=== PATIENT | female | born 1975 | race Caucasian/White ===

== ENCOUNTER 2019-10-20 13:20 | Emergency (ER) | payer OTHER ==
[~2019-10-20 13:20] MED LIST: GLIPIZIDE10 M2 PO; GLYBURIDE2.5 M1 PO; LEVOTHYROXIN25 MC1 PO; LEVOTHYROXIN25 MCG PO; LISINOPRIL2.5 MG PO; METFORMIN1000 MG PO; METFORMIN500 MG PO
[2019-10-20] MEDS ORDERED: METFORMIN500 M2 PO (13:27)
[2019-10-20] MEDS ORDERED: FIASP100 UNIT/M SC (13:27)
[2019-10-20] MEDS ORDERED: TOUJEO SOL300 UNIT/M SC (13:28)
[2019-10-20] MEDS ORDERED: LEVOTHYROXIN75 MCG PO (13:28)
[2019-10-20] MEDS ORDERED: ATORVASTATIN CA40 MG PO (13:31)
[2019-10-20] MEDS ORDERED: ESTRACE2 M1 PO (13:33)
[2019-10-20] MEDS ORDERED: SPIRONOLACTONE25 MG PO (13:33)
[2019-10-20] MEDS ORDERED: FLEXERIL PO (14:20)
[2019-10-20] MEDS ORDERED: NAPROXEN500 MG PO (14:20)
[2019-10-20 14:35] VITALS: BP 140/68
== END 2019-10-20 14:35 | disposition home or self-care (01) | DRG 552 ==
LOC: ED 13:20
DX: S13.9XXA Sprain of joints and ligaments of unspecified parts of neck, initial encounter (principal); E11.9 Type 2 diabetes mellitus without complications; V53.6XXA Passenger in pick-up truck or van injured in collision with car, pick-up truck or van in traffic accident, initial encounter; Z79.4 Long term (current) use of insulin

== ENCOUNTER 2024-03-25 13:52 | Inpatient (IN) | payer MEDICARE, BC ==
[~2024-03-25] VITALS: Ht 167.6 cm; Wt 121.2 kg
[~2024-03-25 13:52] MED LIST changes: +ATORVASTATIN CA40 MG PO; +ESTRACE2 M1 PO; +FIASP100 UNIT/M SC; +FLEXERIL PO; +LEVOTHYROXIN75 MCG PO; +METFORMIN500 M2 PO; +NAPROXEN500 MG PO; +PERCOCET 5/325M1 TAB PO; +SERTRALINE; +SPIRONOLACTONE25 MG PO; +TOUJEO SOL300 UNIT/M SC; +TRESIBA100 UNIT/M
[2024-03-25 17:13] LABS: BASO% 0.3 % (0-3); HEMATOCRIT 45.3 % (37.0-47.0); IMMATURE GRANULOCYTES 0.4 % (0.0-5.0); LYMPH% 10.9 % (15-41); MEAN CORPUSCULAR HGB 28.5 pG CALC (26.0-32.0); MEAN CORPUSCULAR HGB CONC 33.1 g/dL CAL (32.0-36.0); MONO% 4.9 % (2-13); NEUT# 8.97 thou/uL (2.00-7.15); NEUT% 79.5 % (42-76); RED BLOOD COUNT 5.27 mill/uL (4.20-5.60); RED CELL DISTRI WIDTH 13.2 % (11.5-15.5)
[2024-03-25 17:37] LABS: ALBUMIN 4.4 g/dL (3.2-5.0); BILIRUBIN, TOTAL 0.5 mg/dL (0.02-1.3); CREATININE 0.7 mg/dL (0.5-1.0); POTASSIUM 4.8 mmol/l (3.5-5.1); TOTAL PROTEIN 7.4 g/dL (6.3-8.2)
[2024-03-25] MEDS ORDERED: SODIUM CHLORIDE 0.9% 1,000 ML IV ONE (17:55)
[2024-03-25] MEDS ORDERED: PIPERACILLIN Sodium-Tazobactam 3.375 GM in SODIUM CHLORIDE 0.9% 100 ML IV ONE (18:00)
[2024-03-25] MEDS ORDERED: ONDANSETRON HCl 4 MG/2 ML SDV IV ONE (18:00)
[2024-03-25] MEDS ORDERED: MORPHINE SULFATE 4 MG/ML VIAL IV ONE (18:00)
[2024-03-25 19:02] VITALS: BP 147/86
[2024-03-25 20:00] VITALS: BP 145/78
[2024-03-25] MEDS ORDERED: MAGNESIUM HYDROXIDE 30 ML UDC PO PRN (20:05)
[2024-03-25] MEDS ORDERED: Zaleplon 5 MG/CAP PO PRN (20:05)
[2024-03-25] MEDS ORDERED: ACETAMINOPHEN 325 MG/TAB PO PRN (20:05)
[2024-03-25] MEDS ORDERED: oxyCODONE 10MG/APAP 325 MG 1 COMBO TAB PO PRN (20:25)
[2024-03-25] MEDS ORDERED: JARDIANCE25 MG (20:30)
[2024-03-25] MEDS ORDERED: SERTRALINE HYD100 MG (20:30)
[2024-03-25] MEDS ORDERED: INSULIN LISPRO 100 UNITS/ML ML SC SCH (21:00)
[2024-03-25 22:01] VITALS: BP 143/71
[2024-03-26 04:02] VITALS: BP 115/51
[2024-03-26 05:08] LABS: BASO% 0.2 % (0-3); EOS% 6.7 % (0-8); HEMATOCRIT 42.5 % (37.0-47.0); HEMOGLOBIN 13.5 g/dl (12.0-16.0); IMMATURE GRANULOCYTES 0.2 % (0.0-5.0); LYMPH% 19.1 % (15-41); MEAN CELL VOLUME 90.8 fL CALC (80.0-100.0); MEAN CORPUSCULAR HGB 28.8 pG CALC (26.0-32.0); MEAN CORPUSCULAR HGB CONC 31.8 g/dL CAL (32.0-36.0); NEUT# 6.11 thou/uL (2.00-7.15); NEUT% 67.8 % (42-76); RED BLOOD COUNT 4.68 mill/uL (4.20-5.60); RED CELL DISTRI WIDTH 13.3 % (11.5-15.5)
[2024-03-26 05:24] LABS: ALBUMIN 3.8 g/dL (3.2-5.0); CREATININE 0.7 mg/dL (0.5-1.0); POTASSIUM 4.2 mmol/l (3.5-5.1); TOTAL PROTEIN 6.7 g/dL (6.3-8.2)
[2024-03-26 05:27] LABS: BILIRUBIN, TOTAL 0.8 mg/dL (0.02-1.3)
[2024-03-26] MEDS ORDERED: SENNOSIDES-Docusate Sodium 1 COMBO TAB PO SCH (09:00)
[2024-03-26] MEDS ORDERED: SERTRALINE HCL 50 MG/TAB PO SCH (12:00)
[2024-03-26] MEDS ORDERED: VANCOMYCIN HCL 1,500 MG in SODIUM CHLORIDE 0.9% 470 ML IV SCH ×2 (12:00→15:30)
[2024-03-26] MEDS ORDERED: PIPERACILLIN Sodium-Tazobactam 3.375 GM in SODIUM CHLORIDE 0.9% 100 ML IV SCH ×2 (12:00)
[2024-03-26 14:45] VITALS: BP 127/59
[2024-03-26 18:20] VITALS: BP 142/70
[2024-03-26] MEDS ORDERED: DiphenhydrAMINE HCL 25 MG CPLT PO PRN (18:20)
[2024-03-26 18:30] VITALS: BP 142/70
[2024-03-27] VITALS (10 sets, daily range): BP systolic 100–135; BP diastolic 53–78
[2024-03-27 05:54] LABS: BASO% 0.6 % (0-3); EOS% 7.1 % (0-8); HEMATOCRIT 43.1 % (37.0-47.0); HEMOGLOBIN 13.9 g/dl (12.0-16.0); IMMATURE GRANULOCYTES 0.5 % (0.0-5.0); LYMPH% 24.1 % (15-41); MEAN CELL VOLUME 90.5 fL CALC (80.0-100.0); MEAN CORPUSCULAR HGB 29.2 pG CALC (26.0-32.0); MEAN CORPUSCULAR HGB CONC 32.3 g/dL CAL (32.0-36.0); MONO% 6.8 % (2-13); NEUT# 4.02 thou/uL (2.00-7.15); NEUT% 60.9 % (42-76); RED BLOOD COUNT 4.76 mill/uL (4.20-5.60); RED CELL DISTRI WIDTH 13.2 % (11.5-15.5)
[2024-03-27] MEDS ORDERED: LEVOTHYROXINE SODIUM 75 MCG/TAB PO SCH (06:00)
[2024-03-27 06:02] LABS: ALBUMIN 3.9 g/dL (3.2-5.0); BILIRUBIN, TOTAL 0.6 mg/dL (0.02-1.3); CREATININE 0.8 mg/dL (0.5-1.0); MAGNESIUM 2.3 mg/dL (1.6-2.3); POTASSIUM 4.6 mmol/l (3.5-5.1); TOTAL PROTEIN 6.5 g/dL (6.3-8.2)
[2024-03-27] MEDS ORDERED: LIDOCAINE HCL 1% (10MG/ML) 100 MG/10 ML MDV ONE (06:51)
[2024-03-27] MEDS ORDERED: SODIUM CHLORIDE 0.9% 10 ML SYR ONE (06:56)
[2024-03-27] MEDS ORDERED: SODIUM CHLORIDE 0.9% 1,000 ML IV ONE (06:56)
[2024-03-27] MEDS ORDERED: FAMOTIDINE 10MG/ML 2ML SDV IV ONE (07:04)
[2024-03-27] MEDS ORDERED: ACETAMINOPHEN 100 ML IV ONE (09:30)
[2024-03-27] MEDS ORDERED: SODIUM CHLORIDE 1,000 ML BTL IR ONE (09:44)
[2024-03-27] MEDS ORDERED: ONDANSETRON HCl 4 MG/2 ML SDV IV ONE (10:18)
[2024-03-27] MEDS ORDERED: SUCCINYLCHOLINE CHLORIDE 20 MG/ML 10ML VIAL IV ONE (10:18)
[2024-03-27] MEDS ORDERED: KETOROLAC TROMETHAMINE 30 MG/ML SDV IV ONE (10:18)
[2024-03-27] MEDS ORDERED: MIDAZOLAM HCL 2 MG/2 ML VIAL IV ONE (10:18)
[2024-03-27] MEDS ORDERED: PROPOFOL 200 MG/20 ML VIAL IV ONE (10:18)
[2024-03-27] MEDS ORDERED: SUGAMMADEX SODIUM 200 MG/2 ML SDV IV ONE (10:18)
[2024-03-27] MEDS ORDERED: LIDOCAINE HCL 2% 2ML SDV IV ONE (10:18)
[2024-03-27] MEDS ORDERED: ROCURONIUM BROMIDE 10 MG/ML 5ML VIAL IV ONE (10:18)
[2024-03-27] MEDS ORDERED: SODIUM CHLORIDE 0.9% 1,000 ML BAG IV ONE (10:18)
[2024-03-27] MEDS ORDERED: METOPROLOL TARTRATE 5 MG/5 ML VIAL IV ONE (10:18)
[2024-03-27] MEDS ORDERED: HYDROmorphone HCL 2 MG/AMP IV PRN (10:30)
[2024-03-27] MEDS ORDERED: DOXYCYCLINE HYCLATE 100 MG in SODIUM CHLORIDE 0.9% 100 ML IV SCH (11:00)
[2024-03-28 03:40] VITALS: BP 143/78
[2024-03-28 03:48] VITALS: BP 143/78
[2024-03-28 05:41] LABS: BASO% 0.4 % (0-3); EOS% 6.5 % (0-8); HEMATOCRIT 41.3 % (37.0-47.0); IMMATURE GRANULOCYTES 1.5 % (0.0-5.0); LYMPH% 15.7 % (15-41); MEAN CORPUSCULAR HGB 28.3 pG CALC (26.0-32.0); MEAN CORPUSCULAR HGB CONC 31.5 g/dL CAL (32.0-36.0); MONO% 5.6 % (2-13); NEUT# 5.65 thou/uL (2.00-7.15); NEUT% 70.3 % (42-76); RED BLOOD COUNT 4.59 mill/uL (4.20-5.60); RED CELL DISTRI WIDTH 13.2 % (11.5-15.5)
[2024-03-28 06:05] LABS: ALBUMIN 3.7 g/dL (3.2-5.0); BILIRUBIN, TOTAL 0.5 mg/dL (0.02-1.3); CREATININE 0.8 mg/dL (0.5-1.0); MAGNESIUM 2.2 mg/dL (1.6-2.3); POTASSIUM 4.2 mmol/l (3.5-5.1); TOTAL PROTEIN 6.3 g/dL (6.3-8.2)
[2024-03-28] MEDS ORDERED: metFORMIN HYDROCHLORIDE 500 MG/TAB PO SCH (07:00)
[2024-03-28 07:15] VITALS: BP 119/68
[2024-03-28 10:52] VITALS: BP 142/58
[2024-03-28 15:28] VITALS: BP 154/77
[2024-03-28 20:00] VITALS: BP 120/43
[2024-03-28] MEDS ORDERED: SODIUM CHLORIDE 0.9% 1,000 ML IV ONE (22:20)
[2024-03-29] VITALS (11 sets, daily range): BP systolic 115–146; BP diastolic 41–65
[2024-03-29 06:03] LABS: BASO% 0.3 % (0-3); EOS% 9.2 % (0-8); HEMATOCRIT 38.2 % (37.0-47.0); HEMOGLOBIN 12.4 g/dl (12.0-16.0); IMMATURE GRANULOCYTES 0.5 % (0.0-5.0); LYMPH% 18.7 % (15-41); MEAN CELL VOLUME 90.1 fL CALC (80.0-100.0); MEAN CORPUSCULAR HGB 29.2 pG CALC (26.0-32.0); MEAN CORPUSCULAR HGB CONC 32.5 g/dL CAL (32.0-36.0); MONO% 6.2 % (2-13); NEUT# 4.79 thou/uL (2.00-7.15); NEUT% 65.1 % (42-76); RED BLOOD COUNT 4.24 mill/uL (4.20-5.60); RED CELL DISTRI WIDTH 13.1 % (11.5-15.5)
[2024-03-29 06:15] LABS: ALBUMIN 3.3 g/dL (3.2-5.0); BILIRUBIN, TOTAL 0.4 mg/dL (0.02-1.3); CREATININE 0.7 mg/dL (0.5-1.0); POTASSIUM 4.1 mmol/l (3.5-5.1); TOTAL PROTEIN 5.8 g/dL (6.3-8.2)
[2024-03-29] MEDS ORDERED: MIDAZOLAM HCL 2 MG/2 ML VIAL IV ONE (10:18)
[2024-03-29] MEDS ORDERED: PROPOFOL 200 MG/20 ML VIAL IV ONE (10:18)
[2024-03-29] MEDS ORDERED: LIDOCAINE HCL 2% 2ML SDV IV ONE (10:18)
[2024-03-29] MEDS ORDERED: FAMOTIDINE 10MG/ML 2ML SDV IV ONE (10:44)
[2024-03-29] MEDS ORDERED: SODIUM CHLORIDE 0.9% 1,000 ML IV ONE (10:44)
[2024-03-29] MEDS ORDERED: ONDANSETRON HCl 4 MG/2 ML SDV ONE (11:14)
[2024-03-30 04:08] VITALS: BP 124/44
[2024-03-30 05:59] LABS: ALBUMIN 3.4 g/dL (3.2-5.0); BILIRUBIN, TOTAL 0.3 mg/dL (0.02-1.3); CREATININE 0.6 mg/dL (0.5-1.0); MAGNESIUM 1.9 mg/dL (1.6-2.3); POTASSIUM 4.4 mmol/l (3.5-5.1)
[2024-03-30 06:00] LABS: BASO% 0.2 % (0-3); HEMATOCRIT 41.5 % (37.0-47.0); HEMOGLOBIN 12.7 g/dl (12.0-16.0); IMMATURE GRANULOCYTES 0.5 % (0.0-5.0); MEAN CELL VOLUME 94.3 fL CALC (80.0-100.0); MEAN CORPUSCULAR HGB 28.9 pG CALC (26.0-32.0); MEAN CORPUSCULAR HGB CONC 30.6 g/dL CAL (32.0-36.0); MONO% 6.2 % (2-13); NEUT# 5.37 thou/uL (2.00-7.15); NEUT% 67.1 % (42-76); RED BLOOD COUNT 4.4 mill/uL (4.20-5.60); RED CELL DISTRI WIDTH 13.3 % (11.5-15.5)
[2024-03-30 06:29] VITALS: BP 108/33
[2024-03-30 12:00] VITALS: BP 108/33
[2024-03-30 13:48] VITALS: BP 108/33
[2024-03-30 15:59] VITALS: BP 127/56
[2024-03-30 19:26] VITALS: BP 169/66
[2024-03-31 04:52] VITALS: BP 118/51
[2024-03-31 05:30] LABS: HEMATOCRIT 40.7 % (37.0-47.0); HEMOGLOBIN 13.1 g/dl (12.0-16.0); MEAN CELL VOLUME 88.7 fL CALC (80.0-100.0); MEAN CORPUSCULAR HGB 28.5 pG CALC (26.0-32.0); MEAN CORPUSCULAR HGB CONC 32.2 g/dL CAL (32.0-36.0); RED BLOOD COUNT 4.59 mill/uL (4.20-5.60); RED CELL DISTRI WIDTH 13.2 % (11.5-15.5)
[2024-03-31 05:51] LABS: ALBUMIN 3.8 g/dL (3.2-5.0); BILIRUBIN, TOTAL 0.4 mg/dL (0.02-1.3); CREATININE 0.6 mg/dL (0.5-1.0); POTASSIUM 4.1 mmol/l (3.5-5.1); TOTAL PROTEIN 6.4 g/dL (6.3-8.2)
[2024-03-31 07:01] VITALS: BP 125/61
[2024-03-31 15:50] VITALS: BP 126/54
[2024-03-31 16:39] VITALS: BP 126/54
[2024-03-31 19:01] VITALS: BP 148/78
[2024-04-01] VITALS (10 sets, daily range): BP systolic 109–151; BP diastolic 44–70
[2024-04-01] MEDS ORDERED: SODIUM CHLORIDE 0.9% 1,000 ML IV ONE (06:47)
[2024-04-01] MEDS ORDERED: SODIUM CHLORIDE 0.9% 10 ML SYR ONE (06:47)
[2024-04-01] MEDS ORDERED: FAMOTIDINE 10MG/ML 2ML SDV IV ONE (07:19)
[2024-04-01] MEDS ORDERED: ONDANSETRON HCl 4 MG/2 ML SDV ONE (07:19)
[2024-04-01] MEDS ORDERED: LIDOCAINE HCL 2% 2ML SDV IV ONE (10:18)
[2024-04-01] MEDS ORDERED: PROPOFOL 200 MG/20 ML VIAL IV ONE (10:18)
[2024-04-01] MEDS ORDERED: MIDAZOLAM HCL 2 MG/2 ML VIAL IV ONE (10:18)
[2024-04-02 04:12] VITALS: BP 141/63
[2024-04-02 05:39] LABS: BASO% 0.4 % (0-3); EOS% 8.1 % (0-8); HEMATOCRIT 39.7 % (37.0-47.0); HEMOGLOBIN 12.9 g/dl (12.0-16.0); IMMATURE GRANULOCYTES 0.6 % (0.0-5.0); LYMPH% 16.4 % (15-41); MEAN CELL VOLUME 90.2 fL CALC (80.0-100.0); MEAN CORPUSCULAR HGB 29.3 pG CALC (26.0-32.0); MEAN CORPUSCULAR HGB CONC 32.5 g/dL CAL (32.0-36.0); MONO% 6.3 % (2-13); NEUT# 5.57 thou/uL (2.00-7.15); NEUT% 68.2 % (42-76); RED BLOOD COUNT 4.4 mill/uL (4.20-5.60); RED CELL DISTRI WIDTH 13.3 % (11.5-15.5)
[2024-04-02 05:51] VITALS: BP 141/63
[2024-04-02 05:55] LABS: ALBUMIN 3.4 g/dL (3.2-5.0); BILIRUBIN, TOTAL 0.3 mg/dL (0.02-1.3); CREATININE 0.8 mg/dL (0.5-1.0); MAGNESIUM 1.7 mg/dL (1.6-2.3); TOTAL PROTEIN 5.9 g/dL (6.3-8.2)
[2024-04-02 07:43] VITALS: BP 126/62
[2024-04-02] MEDS ORDERED: PERCOCET 5/325M1 TAB PO (08:20)
[2024-04-02] MEDS ORDERED: ONDANSETRON HCl 4 MG/2 ML SDV IV PRN (09:45)
[2024-04-02 14:49] VITALS: BP 139/77
== END 2024-04-02 16:55 | disposition home or self-care (01) | DRG 988 ==
LOC: ED 13:52 → ED-I 17:03 → ED 17:03 → MS2 19:48 → ED 19:48 → MS2 04-02 16:55
PROVIDERS: Family Medicine; Nurse Practitioner Family; ADMIT Internal Medicine; ATTEND Internal Medicine
PROC: 0WBN0ZZ Excision of Female Perineum, Open Approach (ICD-10-PCS; principal; 2024-03-27)
PROC: 0UBG0ZZ Excision of Vagina, Open Approach (ICD-10-PCS; 2024-03-27)
PROC: 2W07X6Z Change Pressure Dressing on Left Inguinal Region (ICD-10-PCS; 2024-03-30)
PROC: 2W06X6Z Change Pressure Dressing on Right Inguinal Region (ICD-10-PCS; 2024-03-30)
PROC: 2W07X6Z Change Pressure Dressing on Left Inguinal Region (ICD-10-PCS; 2024-04-01)
PROC: 2W06X6Z Change Pressure Dressing on Right Inguinal Region (ICD-10-PCS; 2024-04-01)
DX: C19 Malignant neoplasm of rectosigmoid junction (principal); L02.215 Cutaneous abscess of perineum; E11.9 Type 2 diabetes mellitus without complications; I10 Essential (primary) hypertension; E03.9 Hypothyroidism, unspecified; E78.5 Hyperlipidemia, unspecified; T78.40XA Allergy, unspecified, initial encounter; T36.8X5A Adverse effect of other systemic antibiotics, initial encounter; Z93.3 Colostomy status; Z92.3 Personal history of irradiation; Z79.84 Long term (current) use of oral hypoglycemic drugs; Z79.4 Long term (current) use of insulin; Z85.038 Personal history of other malignant neoplasm of large intestine; Z92.21 Personal history of antineoplastic chemotherapy
CPT/HCPCS: J0131; J1171; J1815; J2405; J2543; J3370; Q9967

== ENCOUNTER 2024-05-02 01:06 | Emergency (ER) | payer MEDICARE, BC ==
[~2024-05-02] VITALS: Ht 167.6 cm; Wt 110.0 kg
[~2024-05-02 01:06] MED LIST changes: +JARDIANCE25 MG; +SERTRALINE HYD100 MG
[2024-05-02 01:13] VITALS: BP 136/69
[2024-05-02 01:16] VITALS: BP 129/61
[2024-05-02 01:31] VITALS: BP 128/64
[2024-05-02 01:46] VITALS: BP 154/68
[2024-05-02 03:05] VITALS: BP 128/64
== END 2024-05-02 03:05 | disposition home or self-care (01) ==
LOC: ED 01:06
DX: T82.534A Leakage of infusion catheter, initial encounter (principal); I10 Essential (primary) hypertension; E11.9 Type 2 diabetes mellitus without complications; C80.1 Malignant (primary) neoplasm, unspecified; Y83.8 Other surgical procedures as the cause of abnormal reaction of the patient, or of later complication, without mention of misadventure at the time of the procedure; Z79.84 Long term (current) use of oral hypoglycemic drugs; Z79.4 Long term (current) use of insulin; Z79.60 Long term (current) use of unspecified immunomodulators and immunosuppressants